=== PATIENT | female | born 1990 | race Caucasian/White ===

== ENCOUNTER 2018-03-15 11:37 | Emergency (ER) | payer OTHER ==
[~2018-03-15] VITALS: Ht 165.1 cm; Wt 49.9 kg
[2018-03-15 11:50] VITALS: BP 138/76
--- NOTE | 2018-03-15 12:05 | NUR ---
PT. ARRIVED TO THE ED DUE TO VAGINAL ITCHY AND DISCHARGE X 1 MONTH. PT. STATES " I HAD UNPROTECTED SEX AND EVER SINCE THEN I HAVE BEEN HAVING WHITISH YELLOW DISCHARGE AND VAGINAL ITCHING AND BURNING ON AND OFF". DENIES ANY N/V/D. AFEBRILE AT THIS TIME. ADMITS TO METH USE. ER MD MADE AWARE. SAFETY PRECAUTIONS IMPLEMENTED. WILL CONTINUE TO MONITOR.
[2018-03-15] MEDS ORDERED: cefTRIAXone 1,000 MG in LIDOCAINE 1% ***ER ONLY *** 2.1 ML IM ONE (13:10)
[2018-03-15] MEDS ORDERED: LEVOFLOXACIN 500 MG TAB PO ONE (13:10)
[2018-03-15] MEDS ORDERED: cefTRIAXone 1,000 MG VIAL ONE (14:02)
[2018-03-15] MEDS ORDERED: LIDOCAINE MPF 1% - 5 mL VIAL 5 ML ONE (14:03)
[2018-03-15 14:54] VITALS: BP 138/76
== END 2018-03-15 14:57 | disposition home or self-care (01) ==
LOC: MED 11:37
DX: N72 Inflammatory disease of cervix uteri (principal); N76.0 Acute vaginitis; A64 Unspecified sexually transmitted disease; F15.90 Other stimulant use, unspecified, uncomplicated; Z72.51 High risk heterosexual behavior
CPT/HCPCS: 81025; 87205; 87210; 96372; 99283; J0696; J2001

== ENCOUNTER 2018-08-17 10:27 | Emergency (ER) | payer OTHER ==
[~2018-08-17] VITALS: Ht 180.3 cm; Wt 63.0 kg
[2018-08-17 10:29] VITALS: BP 133/82
--- NOTE | 2018-08-17 10:56 | NUR ---
PT STATES SHE NEEDS TEST SO SHE COULD GET PENITENTIARY FROM WELFARE OFFICE. PT IS HOMLESS, REPEATIDLY STATES THAT SHE SMELLS BECAUSE SHE CAN'T HOLD HER BLADDER, APPOLIGIZES FREQUENTLY, EXCESSIVE TALKING. HISTORY OF METH USE, PT STATES SHE USED YESTERDAY. LMP END OF MAY, . HX:DRUG ABUSE
[2018-08-17 11:29] LABS: BASOPHILS # (AUTO) 0.1 K/uL (0.00-0.22); BASOPHILS % (AUTO) 0.6 % (0.0-2.0); EOSINOPHILS % (AUTO) 0.5 % (0.0-4.0); HEMATOCRIT 37.7 % (36-48); HEMOGLOBIN 12.7 g/dL (12.0-16.0); LYMPHOCYTES # (AUTO) 2.2 K/uL (2.5-16.5); LYMPHOCYTES % (AUTO) 21.7 % (20.5-51.1); MEAN CORPUSCULAR HEMOGLOBIN 31 pg (27-31); MEAN CORPUSCULAR HGB CONC 34 g/dL (33-37); MEAN CORPUSCULAR VOLUME 91.2 fL (80-94); MONOCYTES # (AUTO) 0.5 K/uL (0.8-1.0); MONOCYTES % (AUTO) 5.1 % (1.7-9.3); NEUTROPHILS # (AUTO) 7.2 K/uL (1.8-7.7); NEUTROPHILS % (AUTO) 72.1 % (42.2-75.2); PLATELET COUNT (AUTO) 271 K/uL (140-450); RED BLOOD CELL COUNT(AUTO) 4.14 MIL/uL (4.20-5.40); RED CELL DISTRIBUTION WIDTH 13.2 % (11.6-13.7)
[2018-08-17 11:39] LABS: MAGNESIUM 1.7 mg/dL (1.8-2.4)
[2018-08-17 11:47] LABS: APPEARANCE,URINE CLEAR (CLEAR); BILIRUBIN,URINE NEGATIVE (NEGATIVE); BLOOD, URINE NEGATIVE (NEGATIVE); COLOR,URINE YELLOW (YELLOW); LEUKOCYTE ESTERASE ,URINE NEGATIVE (NEGATIVE); NITRITE, URINE NEGATIVE (NEGATIVE); UGLUCOSE NEGATIVE (NEGATIVE)
[2018-08-17 12:29] VITALS: BP 120/78
--- NOTE | 2018-08-17 12:29 | NUR ---
Patient discharged with v/s stable. Written and verbal after care instructions given and explained. Patient verbalized understanding. Ambulatory with steady gait. All questions addressed prior to discharge. Advised to follow up with PMD. PT GIVEN TEST RESULTS AND OFFERED MISTI PASS VOUCHER.
[2018-08-17 13:07] LABS: BARBITURATE, URINE NEG. ng/ml (NEG <=200); BENZODIAZEPINE, URINE NEG. ng/mL (NEG <=200); CANNABINOID, URINE NEG. ng/mL (NEG <=50); COCAINE, URINE NEG. ng/mL (NEG <=300); OPIATE, URINE NEG. ng/mL (NEG <=2000); PHENCYCLIDINE SCREEN,URINE NEG. ng/mL (NEG <=25)
== END 2018-08-17 12:29 | disposition home or self-care (01) ==
LOC: MED 10:27
DX: O99.321 Drug use complicating pregnancy, first trimester (principal); F15.10 Other stimulant abuse, uncomplicated; F12.10 Cannabis abuse, uncomplicated; F10.10 Alcohol abuse, uncomplicated; Z59.0 Homelessness; Z3A.11 11 weeks gestation of pregnancy; Y90.0 Blood alcohol level of less than 20 mg/100 ml
CPT/HCPCS: 36415; 76817; 80305; 81003; 81025; 83735; 84702; 85025; 86900; 86901; 99284; G0482

== ENCOUNTER 2018-08-27 16:36 | Emergency (ER) | payer OTHER ==
[~2018-08-27] VITALS: Ht 162.6 cm; Wt 52.2 kg
[2018-08-27 16:37] VITALS: BP 118/78
--- NOTE | 2018-08-27 16:50 | NUR ---
HOMELESS. C/O VAGINAL IRRITATION WITH ITCHING SENSATION AND WANT TO CHECK FOR STD & UTI. SEEN HERE 08/17/18 HERE. DENIES DYSURIA. LMP END OF MAY 2018. DENIES N/V/D; SKIN IS PINK/WARM/DRY; AAOX4 WITH EVEN AND STEADY GAIT; LUNGS CLEAR BL; HR EVEN AND REGULAR; PT DENIES ANY FEVER, CP, SOB, OR COUGH AT THIS TIME; PATIENT IS UNABLE TO DESCRIBE OR RATE HER PAIN; VSS; NO VAGINAL PAIN, DISCHARGE, EDEMA, OR ERYTHEMA NOTICED ON ASSESSMENT. PATIENT POSITIONED FOR COMFORT; HOB ELEVATED; BEDRAILS UP X1; BED DOWN. ER MD MADE AWARE OF PT STATUS.
--- NOTE | 2018-08-27 16:53 | NUR ---
PT AMBULATED TO ER BED 3
[2018-08-27 17:48] LABS: APPEARANCE,URINE HAZY (CLEAR); BILIRUBIN,URINE NEGATIVE (NEGATIVE); BLOOD, URINE NEGATIVE (NEGATIVE); COLOR,URINE YELLOW (YELLOW); LEUKOCYTE ESTERASE ,URINE NEGATIVE (NEGATIVE); NITRITE, URINE NEGATIVE (NEGATIVE); PH,URINE 7.5 (5.0-9.0); UGLUCOSE NEGATIVE (NEGATIVE)
[2018-08-27 18:40] VITALS: BP 109/58
--- NOTE | 2018-08-27 18:40 | NUR ---
Patient discharged with v/s stable. Written and verbal after care instructions given and explained. Patient verbalized understanding. Ambulatory with steady gait. All questions addressed prior to discharge. Advised to follow up with PMD. BUS PASS PROVIDED TO PT.
[2018-08-29 06:21] LABS: CHLAMYDIA TRACHOMATIS AMP DNA Negative (Negative)
== END 2018-08-27 18:40 | disposition home or self-care (01) ==
LOC: MED 16:36
DX: O26.891 Other specified pregnancy related conditions, first trimester (principal); N89.8 Other specified noninflammatory disorders of vagina; Z3A.11 11 weeks gestation of pregnancy; Z59.0 Homelessness
CPT/HCPCS: 36415; 81003; 81025; 87491; 99283

== ENCOUNTER 2018-09-11 23:31 | Emergency (ER) | payer OTHER ==
[~2018-09-11] VITALS: Ht 162.6 cm; Wt 54.4 kg
[2018-09-11 23:33] VITALS: BP 133/81
--- NOTE | 2018-09-11 23:36 | NUR ---
TO LOBBY A/W BED AMBULATORY
--- NOTE | 2018-09-11 23:49 | NUR ---
PT TO ER BED 04 AMBULATORY
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
[2018-09-12] MEDS ORDERED: FLUCONAZOLE 100 MG TAB PO ONE (02:20)
[2018-09-12] MEDS ORDERED: AZITHROMYCIN 250 MG TAB PO ONE (02:20)
[2018-09-12] MEDS ORDERED: FLUCONAZOLE 100 MG TAB ONE (02:42)
--- NOTE | 2018-09-12 02:45 | NUR ---
Patient discharged with v/s stable. Patient acting appropriatly, states she is ready to go; denies pain at this time. Written and verbal after care instructions given and explained. Patient alert, oriented and verbalized understanding of instructions. Ambulatory with steady gait. All questions addressed prior to discharge. ID band removed. Patient advised to follow up with PMD. Rx of Zithromax given. Patient educated on indication of medication including possible reaction and side effects. Opportunity to ask questions provided and answered.
[2018-09-12 02:58] VITALS: BP 128/73
== END 2018-09-12 02:45 | disposition home or self-care (01) ==
LOC: MED 23:31
DX: O98.812 Other maternal infectious and parasitic diseases complicating pregnancy, second trimester (principal); B37.9 Candidiasis, unspecified; A74.9 Chlamydial infection, unspecified; Z59.0 Homelessness; Z3A.16 16 weeks gestation of pregnancy
CPT/HCPCS: 81025; 99283

== ENCOUNTER 2018-11-05 21:19 | Emergency (ER) | payer OTHER ==
[~2018-11-05] VITALS: Ht 160 cm; Wt 56.2 kg
[2018-11-05 21:32] VITALS: BP 114/71
--- NOTE | 2018-11-05 22:54 | NUR ---
PT AMBULATED TO BED 08 WITH STEADY GAIT.
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
--- NOTE | 2018-11-06 00:10 | NUR ---
SEEN AND EXAMINED BY ERMD AT BEDSIDE
[2018-11-06 00:45] VITALS: BP 110/76
--- NOTE | 2018-11-06 00:45 | NUR ---
Patient discharged with v/s stable. Written and verbal after care instructions given and explained. Patient verbalized understanding. Pt. stated staying at a friends house tonight. Provided with food. Ambulatory with steady gait. All questions addressed prior to discharge. Advised to follow up with PMD.
== END 2018-11-06 00:45 | disposition home or self-care (01) ==
LOC: MED 21:19
DX: O26.892 Other specified pregnancy related conditions, second trimester (principal); Z3A.23 23 weeks gestation of pregnancy
CPT/HCPCS: 81002; 81025; 99283

== ENCOUNTER 2019-01-12 15:10 | Observation (INO) | payer OTHER ==
[~2019-01-12] VITALS: Ht 162.6 cm; Wt 62.6 kg
[2019-01-12] MEDS ORDERED: LACTATED RINGERS 1,000 ML IV SCH (15:30)
[2019-01-12] MEDS ORDERED: BETAMETH ACET/BETAMETH NA PH 30 MG/5 ML VIAL IM ONE ×2 (15:40→16:39)
[2019-01-12 15:56] LABS: BASOPHILS # (AUTO) 0.1 K/uL (0.00-0.22); BASOPHILS % (AUTO) 0.5 % (0.0-2.0); EOSINOPHILS # (AUTO) 0.1 K/uL (0-0.4); EOSINOPHILS % (AUTO) 0.6 % (0.0-4.0); HEMOGLOBIN 11.6 g/dL (12.0-16.0); LYMPHOCYTES # (AUTO) 2.2 K/uL (2.5-16.5); LYMPHOCYTES % (AUTO) 19.8 % (20.5-51.1); MEAN CORPUSCULAR HEMOGLOBIN 30 pg (27-31); MEAN CORPUSCULAR HGB CONC 32 g/dL (33-37); MEAN CORPUSCULAR VOLUME 91.7 fL (80-94); MONOCYTES # (AUTO) 0.8 K/uL (0.8-1.0); MONOCYTES % (AUTO) 6.9 % (1.7-9.3); NEUTROPHILS % (AUTO) 72.2 % (42.2-75.2); PLATELET COUNT (AUTO) 282 K/uL (140-450); RED BLOOD CELL COUNT(AUTO) 3.92 MIL/uL (4.20-5.40); RED CELL DISTRIBUTION WIDTH 13.3 % (11.6-13.7); WHITE BLOOD COUNT (AUTO) 11.1 K/uL (4.8-10.8)
[2019-01-12 16:23] LABS: APPEARANCE,URINE CLEAR (CLEAR); BILIRUBIN,URINE NEGATIVE (NEGATIVE); BLOOD, URINE NEGATIVE (NEGATIVE); COLOR,URINE YELLOW (YELLOW); LEUKOCYTE ESTERASE ,URINE NEGATIVE (NEGATIVE); NITRITE, URINE NEGATIVE (NEGATIVE); UGLUCOSE NEGATIVE (NEGATIVE)
[2019-01-12 16:33] LABS: BARBITURATE, URINE NEG. ng/ml (NEG <=200); BENZODIAZEPINE, URINE NEG. ng/mL (NEG <=200); CANNABINOID, URINE NEG. ng/mL (NEG <=50); COCAINE, URINE NEG. ng/mL (NEG <=300); OPIATE, URINE NEG. ng/mL (NEG <=2000); PHENCYCLIDINE SCREEN,URINE NEG. ng/mL (NEG <=25)
[2019-01-12] MEDS ORDERED: ZOLPIDEM 5 MG TAB PO SCH (23:00)
--- NOTE | 2019-01-13 08:15 | NUR ---
PATIENT HAS BEEN SCREENED AND CATEGORIZED LOW NUTRITION RISK. PATIENT WILL BE SEEN WITHIN 7 DAYS OF ADMISSION. 01/19/[address]
[2019-01-13] MEDS ORDERED: BETAMETH ACET/BETAMETH NA PH 30 MG/5 ML VIAL IM ONE (11:36)
[2019-01-14] MEDS ORDERED: PREN-380 PO (16:43)
== END 2019-01-13 12:22 | disposition home or self-care (01) ==
LOC: MLD 15:10
PROVIDERS: ADMIT Obstetrics & Gynecology; ATTEND Obstetrics & Gynecology
DX: O99.323 Drug use complicating pregnancy, third trimester (principal); O40.3XX0 Polyhydramnios, third trimester, not applicable or unspecified; F15.10 Other stimulant abuse, uncomplicated; Z3A.32 32 weeks gestation of pregnancy
CPT/HCPCS: 36415; 59025; 76805; 76819; 80305; 81003; 85025; 86886; 86900; 86901; 96372; G0378; J0702; J7120; Q0092

== ENCOUNTER 2019-01-13 20:44 | Observation (INO) | payer OTHER ==
[~2019-01-13] VITALS: Ht 162.6 cm; Wt 62.6 kg
--- NOTE | 2019-01-13 20:46 | NUR ---
2046-- PT WENT TO L&D BED 5 VIA W/C
[2019-01-13 22:30] VITALS: BP 112/66
[2019-01-13] MEDS ORDERED: INFLUENZA VACCINE QUAD 0.5 ML SYR IMVAC PRN ×2 (22:30)
[2019-01-13] MEDS ORDERED: diphenhydrAMINE 50 MG CAP PO ONE (23:05)
[2019-01-14] MEDS ORDERED: PREN-380 PO (16:43)
== END 2019-01-14 01:00 | disposition home or self-care (01) ==
LOC: MED 20:44 → MLD 21:20
PROVIDERS: ADMIT Obstetrics & Gynecology; ATTEND Obstetrics & Gynecology
DX: O99.343 Other mental disorders complicating pregnancy, third trimester (principal); F41.9 Anxiety disorder, unspecified; Z3A.32 32 weeks gestation of pregnancy
CPT/HCPCS: 81000; 90686; 99285; G0378; Q0163

== ENCOUNTER 2019-01-14 16:09 | Observation (INO) | payer OTHER ==
[~2019-01-14] VITALS: Ht 162.6 cm; Wt 62.6 kg
[2019-01-14 16:20] VITALS: BP 109/60
[2019-01-14] MEDS ORDERED: hydrOXYzine 50 MG/ML VIAL IM ONE (16:40)
[2019-01-14] MEDS ORDERED: PREN-380 PO (16:43)
[2019-01-14] MEDS ORDERED: hydrOXYzine PAMOATE 25 MG CAP PO SCH ×2 (17:00→17:30)
[2019-01-14 17:16] LABS: APPEARANCE,URINE CLEAR (CLEAR); BILIRUBIN,URINE NEGATIVE (NEGATIVE); BLOOD, URINE NEGATIVE (NEGATIVE); COLOR,URINE YELLOW (YELLOW); LEUKOCYTE ESTERASE ,URINE TRACE (NEGATIVE); NITRITE, URINE NEGATIVE (NEGATIVE); UGLUCOSE NEGATIVE (NEGATIVE)
[2019-01-14 17:20] LABS: BARBITURATE, URINE NEGATIVE ng/ml (NEG <=200); BENZODIAZEPINE, URINE NEGATIVE ng/mL (NEG <=200); CANNABINOID, URINE NEGATIVE ng/mL (NEG <=50); COCAINE, URINE NEGATIVE ng/mL (NEG <=300); OPIATE, URINE NEGATIVE ng/mL (NEG <=2000); PHENCYCLIDINE SCREEN,URINE NEGATIVE ng/mL (NEG <=25)
[2019-01-14 17:45] LABS: RBC,URINE 0 /HPF (0-5); WBC,URINE 0-5 /HPF (0-5)
--- NOTE | 2019-01-15 08:57 | NUR ---
PATIENT HAS BEEN SCREENED AND CATEGORIZED LOW NUTRITION RISK. PATIENT WILL BE SEEN WITHIN 7 DAYS OF ADMISSION. 01/22/[address]
== END 2019-01-14 18:58 | disposition home or self-care (01) ==
LOC: MLD 16:09
PROVIDERS: ADMIT Obstetrics & Gynecology; ATTEND Obstetrics & Gynecology
DX: O99.343 Other mental disorders complicating pregnancy, third trimester (principal); F41.9 Anxiety disorder, unspecified; Z3A.32 32 weeks gestation of pregnancy
CPT/HCPCS: 80305; 81001; G0378; Q0177

== ENCOUNTER 2019-01-26 23:07 | Emergency (ER) | payer OTHER ==
[~2019-01-26] VITALS: Ht 162.6 cm; Wt 64.0 kg
[~2019-01-26 23:07] MED LIST: PREN-380 PO
[2019-01-26 23:15] VITALS: BP 109/63
--- NOTE | 2019-01-26 23:17 | NUR ---
28 Y/O FEMALE C/O LEG SPASM FOR ONE MONTH. NO PMH, 34 WEEKS ; LAST LMP MAY 29. PAIN IS A 4/10 CRAMP LIKE PAIN LEGS BILATERALLY. PEDAL PULSES +2. NO EDEMA IN THE ANKLES. A/OX4 FOLLOWS COMMANDS; BREATHING UNLABORED AND SYMMETRICAL. ERMD MADE AWARE OF STATUS. SIDE RAILSX1. WILL CONTINUE TO MONITOR. PMH:DENIES RX:DENIES NKDA
--- NOTE | 2019-01-26 23:17 | NUR ---
to lobby a/w bed ambulatory
--- NOTE | 2019-01-26 23:53 | NUR ---
Dr. Hess examining patient.
[2019-01-27] MEDS ORDERED: MAGNESIUM OXIDE 400 MG TAB PO ONE (00:20)
[2019-01-27] MEDS ORDERED: FERROUS GLUCONATE 324 MG TAB PO ONE (00:20)
[2019-01-27] MEDS ORDERED: MAGNESIUM OXIDE 400 MG TAB ONE (00:43)
[2019-01-27 00:57] VITALS: BP 109/63
--- NOTE | 2019-01-27 00:57 | NUR ---
Patient discharged with v/s stable. Written and verbal after care instructions given and explained. Patient alert, oriented and verbalized understanding of instructions. Ambulatory with steady gait. All questions addressed prior to discharge. ID band removed. Patient advised to follow up with PMD. Rx of MR 90 FE WAS given. Patient educated on indication of medication including possible reaction and side effects. Opportunity to ask questions provided and answered. PT STATED SHE HAD NO PAIN 0/10 PRIOR TO D/C. PT WILL FOLLOW UP WITH OBGYN
[2019-01-28] MEDS ORDERED: CALCIUM (05:35)
[2019-01-28] MEDS ORDERED: DOCO100C PO (05:35)
== END 2019-01-27 00:57 | disposition home or self-care (01) ==
LOC: MED 23:07
DX: O26.893 Other specified pregnancy related conditions, third trimester (principal); R25.2 Cramp and spasm; Z3A.34 34 weeks gestation of pregnancy; Z79.899 Other long term (current) drug therapy
CPT/HCPCS: 99282

== ENCOUNTER 2019-01-28 03:55 | Observation (INO) | payer OTHER ==
[~2019-01-28] VITALS: Ht 162.6 cm; Wt 64.0 kg
[2019-01-28 05:29] VITALS: BP 116/86
[2019-01-28] MEDS ORDERED: CALCIUM (05:35)
[2019-01-28] MEDS ORDERED: DOCO100C PO (05:35)
== END 2019-01-28 09:35 | disposition home or self-care (01) ==
LOC: MFCC 03:55
PROVIDERS: ADMIT Obstetrics & Gynecology; ATTEND Obstetrics & Gynecology
DX: O42.913 Preterm premature rupture of membranes, unspecified as to length of time between rupture and onset of labor, third trimester (principal); Z3A.35 35 weeks gestation of pregnancy
CPT/HCPCS: 81000; G0378

== ENCOUNTER 2019-02-14 11:44 | Emergency (ER) | payer OTHER ==
[~2019-02-14] VITALS: Ht 162.6 cm; Wt 68.5 kg
[~2019-02-14 11:44] MED LIST changes: +CALCIUM; +DOCO100C PO
[2019-02-14 11:48] VITALS: BP 129/73
--- NOTE | 2019-02-14 11:53 | NUR ---
Pt taken to bed 3.
--- NOTE | 2019-02-14 12:04 | NUR ---
28/F c/o right hand tingling and tightness x3 days. Pt reports being 37 weeks , sent by Dr. Apodaca for evaluation. Pt denies any trauma. Denies injury. Full ROM. CMS intact. Denies any vaginal bleeding or abd pain.
--- NOTE | 2019-02-14 12:20 | NUR ---
APPLIED WRIST SPLINT TO RIGHT WRIST WITHOUT ANY ISSUES.
[2019-02-14 12:25] VITALS: BP 121/70
--- NOTE | 2019-02-14 12:25 | NUR ---
Patient discharged with v/s stable. Written and verbal after care instructions given and explained. Patient verbalized understanding. Ambulatory with steady gait. All questions addressed prior to discharge. Advised to follow up with PMD.
== END 2019-02-14 12:25 | disposition home or self-care (01) ==
LOC: MED 11:44
DX: O99.713 Diseases of the skin and subcutaneous tissue complicating pregnancy, third trimester (principal); R20.2 Paresthesia of skin; Z3A.37 37 weeks gestation of pregnancy; Z79.899 Other long term (current) drug therapy
CPT/HCPCS: 99283

== ENCOUNTER 2019-02-20 22:43 | Emergency (ER) | payer OTHER ==
[~2019-02-20] VITALS: Ht 162.6 cm; Wt 68.3 kg
[2019-02-20 22:52] VITALS: BP 128/76
--- NOTE | 2019-02-20 23:00 | NUR ---
AFTER BEING TRIAGED PATIENT STATES SHE DOES NOT WANT TO BE SEEN BY DR. SCANLON.
== END 2019-02-20 23:00 | disposition left against medical advice (07) ==
LOC: MED 22:43
DX: O99.713 Diseases of the skin and subcutaneous tissue complicating pregnancy, third trimester (principal); R20.0 Anesthesia of skin; Z53.21 Procedure and treatment not carried out due to patient leaving prior to being seen by health care provider; Z3A.37 37 weeks gestation of pregnancy

== ENCOUNTER 2019-03-04 10:51 | Inpatient (IN) | payer OTHER ==
[~2019-03-04] VITALS: Ht 162.6 cm; Wt 68.9 kg
[2019-03-04] MEDS ORDERED: PROMETHAZINE 25 MG/ML VIAL IVP PRN (11:20)
[2019-03-04] MEDS ORDERED: NALBUPHINE 10 MG/ML AMP IVP PRN (11:20)
[2019-03-04] MEDS ORDERED: METHYLERGONOVINE 0.2 MG/ML AMP IM PRN (11:20)
[2019-03-04] MEDS ORDERED: OXYTOCIN 20 UNITS in LACTATED RINGERS 1,000 ML IV SCH (11:20)
[2019-03-04] MEDS ORDERED: CARBOPROST 250 MCG/ML AMP IM PRN (11:20)
[2019-03-04 12:15] LABS: BASOPHILS % (AUTO) 0.5 % (0.0-2.0); EOSINOPHILS # (AUTO) 0.1 K/uL (0-0.4); EOSINOPHILS % (AUTO) 0.9 % (0.0-4.0); HEMATOCRIT 35.8 % (36-48); HEMOGLOBIN 11.8 g/dL (12.0-16.0); LYMPHOCYTES # (AUTO) 2.2 K/uL (2.5-16.5); LYMPHOCYTES % (AUTO) 24.7 % (20.5-51.1); MEAN CORPUSCULAR HEMOGLOBIN 30 pg (27-31); MEAN CORPUSCULAR HGB CONC 33 g/dL (33-37); MEAN CORPUSCULAR VOLUME 90.9 fL (80-94); MONOCYTES # (AUTO) 0.6 K/uL (0.8-1.0); MONOCYTES % (AUTO) 7.1 % (1.7-9.3); NEUTROPHILS % (AUTO) 66.8 % (42.2-75.2); PLATELET COUNT (AUTO) 222 K/uL (140-450); RED BLOOD CELL COUNT(AUTO) 3.94 MIL/uL (4.20-5.40); WHITE BLOOD COUNT (AUTO) 8.9 K/uL (4.8-10.8)
[2019-03-04 12:20] LABS: APPEARANCE,URINE SL CLOUDY (CLEAR); BILIRUBIN,URINE NEGATIVE (NEGATIVE); BLOOD, URINE NEGATIVE (NEGATIVE); COLOR,URINE YELLOW (YELLOW); LEUKOCYTE ESTERASE ,URINE 1+ (NEGATIVE); NITRITE, URINE NEGATIVE (NEGATIVE); PH,URINE 6.5 (5.0-9.0); UGLUCOSE NEGATIVE (NEGATIVE)
[2019-03-04 12:25] VITALS: BP 110/67
[2019-03-04 12:27] LABS: BARBITURATE, URINE NEG. ng/ml (NEG <=200); BENZODIAZEPINE, URINE NEG. ng/mL (NEG <=200); CANNABINOID, URINE NEG. ng/mL (NEG <=50); COCAINE, URINE NEG. ng/mL (NEG <=300); OPIATE, URINE NEG. ng/mL (NEG <=2000); PHENCYCLIDINE SCREEN,URINE NEG. ng/mL (NEG <=25)
[2019-03-04 12:30] LABS: RBC,URINE 0-5 /HPF (0-5)
[2019-03-04 12:42] LABS: ANION GAP 12.1 (8-16); CARBON DIOXIDE 24.8 mmol/L (21-32); CREATININE 0.7 mg/dL (0.6-1.3); POTASSIUM 3.9 mmol/L (3.5-5.1)
[2019-03-04 12:48] LABS: ALBUMIN 2.4 g/dL (3.4-5.0); TOTAL BILIRUBIN 0.8 mg/dL (0.0-1.0)
[2019-03-04] MEDS ORDERED: MISOPROSTOL 25 MCG TAB ONE ×2 (13:56→18:12)
[2019-03-04] MEDS: LACTATED RINGERS 1,000 ML IV SCH ×2 (14:00→19:56)
[2019-03-04] MEDS ORDERED: ACETAMINOPHEN EXTRA STRENGTH 500 MG TAB PO PRN (15:50)
[2019-03-04] MEDS ORDERED: ACETAMINOPHEN EXTRA STRENGTH 500 MG TAB ONE (15:54)
[2019-03-04] MEDS ORDERED: HYDR25CA1 PO (16:55)
[2019-03-04] MEDS ORDERED: MISOPROSTOL 200 MCG TAB VG SCH (18:00)
[2019-03-04] MEDS ORDERED: EPIDURAL KEYS MC ONE (20:17)
[2019-03-04] MEDS ORDERED: OXYTOCIN 20 UNITS/LR PREMIX 1,000 ML IV ONE (21:56)
[2019-03-04] MEDS ORDERED: ceFAZolin 1,000 MG VIAL ONE (22:56)
[2019-03-04] MEDS ORDERED: ePHEDrine 50 MG/ML VIAL ONE (23:22)
[2019-03-04] MEDS ORDERED: MORPHINE PRES FREE 10 MG/10 ML AMP IV ONE (23:33)
[2019-03-04] MEDS ORDERED: SODIUM BICARBONATE 8.4% PFS 50 MEQ/50 ML SYR IVP ONE (23:34)
[2019-03-04] MEDS ORDERED: LIDOCAINE/EPI 2% 1:100000 20 ML VIAL INJ ONE (23:42)
[2019-03-04] MEDS ORDERED: LIDOCAINE/EPI MPF 2%1:200000 10 ML VIAL INJ ONE (23:51)
[2019-03-05] MEDS ORDERED: OXYTOCIN 20 UNITS/LR PREMIX 1,000 ML IV ONE (00:19)
[2019-03-05] MEDS ORDERED: ONDANSETRON 4 MG/2 ML VIAL ONE (00:19)
[2019-03-05] MEDS ORDERED: ONDANSETRON 4 MG/2 ML VIAL IVP PRN ×3 (00:40→00:45)
[2019-03-05] MEDS ORDERED: diphenhydrAMINE 50 MG/ML VIAL IVP PRN (00:40)
[2019-03-05] MEDS ORDERED: NALBUPHINE 10 MG/ML AMP IVP PRN (00:40)
[2019-03-05] MEDS ORDERED: NALOXONE 0.4 MG/ML VIAL IVP PRN ×4 (00:40→00:45)
[2019-03-05] MEDS ORDERED: KETOROLAC 30 MG/ML VIAL IVP PRN (00:40)
[2019-03-05] MEDS ORDERED: HYDROmorphone 1 MG/ML AMP IVP PRN (00:45)
[2019-03-05] MEDS ORDERED: MEASLES, MUMPS, AND RUBELLA 1 VIAL SQVAC PRN (00:55)
[2019-03-05] MEDS ORDERED: METHYLERGONOVINE 0.2 MG/ML AMP IM PRN (00:55)
[2019-03-05] MEDS: OXYTOCIN 10 UNITS in LACTATED RINGERS 1,000 ML IV SCH ×2 (05:59→14:42)
[2019-03-05] MEDS ORDERED: LIDOCAINE/EPI MPF 2%1:200000 10 ML VIAL INJ ONE (07:05)
--- NOTE | 2019-03-05 08:19 | NUR ---
PATIENT HAS BEEN SCREENED AND CATEGORIZED LOW NUTRITION RISK. PATIENT WILL BE SEEN WITHIN 7 DAYS OF ADMISSION. 03/10/[address]
[2019-03-05 12:11] LABS: BASOPHILS % (AUTO) 0.1 % (0.0-2.0); HEMATOCRIT 30.4 % (36-48); LYMPHOCYTES # (AUTO) 0.7 K/uL (2.5-16.5); LYMPHOCYTES % (AUTO) 4.1 % (20.5-51.1); MEAN CORPUSCULAR HEMOGLOBIN 30 pg (27-31); MEAN CORPUSCULAR HGB CONC 33 g/dL (33-37); MEAN CORPUSCULAR VOLUME 90.8 fL (80-94); MONOCYTES # (AUTO) 0.7 K/uL (0.8-1.0); MONOCYTES % (AUTO) 3.7 % (1.7-9.3); NEUTROPHILS # (AUTO) 16.8 K/uL (1.8-7.7); NEUTROPHILS % (AUTO) 92.1 % (42.2-75.2); PLATELET COUNT (AUTO) 193 K/uL (140-450); RED BLOOD CELL COUNT(AUTO) 3.35 MIL/uL (4.20-5.40); RED CELL DISTRIBUTION WIDTH 14.6 % (11.6-13.7); WHITE BLOOD COUNT (AUTO) 18.2 K/uL (4.8-10.8)
[2019-03-05] MEDS: KETOROLAC 30 MG/ML VIAL IM/IVP SCH ×2 (13:01→18:55)
[2019-03-05] MEDS ORDERED: IBUPROFEN 600 MG TAB PO SCH (18:00)
[2019-03-05] MEDS ORDERED: CARBOPROST 250 MCG/ML AMP IM PRN (18:45)
[2019-03-05] MEDS ORDERED: PROMETHAZINE 25 MG/ML VIAL IVP PRN (18:45)
[2019-03-06] MEDS: KETOROLAC 30 MG/ML VIAL IM/IVP SCH (00:55)
[2019-03-06] MEDS: BISACODYL 10 MG SUPP RC SCH (09:00)
[2019-03-06] MEDS: IBUPROFEN 600 MG TAB PO SCH ×3 (12:10→23:46)
[2019-03-06] MEDS ORDERED: DOCUSATE 100 MG/10 ML UDC PO SCH (20:00)
[2019-03-06] MEDS ORDERED: DOCUSATE 100 MG/10 ML UDC PO PRN (20:10)
[2019-03-06] MEDS: diphenhydrAMINE 50 MG CAP PO PRN (21:20)
[2019-03-06] MEDS: DOCUSATE SODIUM 100 MG GELCAP PO PRN (21:20)
[2019-03-06] MEDS: oxyCODONE/APAP 5/325 MG 1 TAB TAB PO PRN (21:40)
[2019-03-07] MEDS: IBUPROFEN 600 MG TAB PO SCH ×3 (05:57→18:05)
[2019-03-07] MEDS: DOCUSATE SODIUM 100 MG GELCAP PO PRN ×3 (07:46→21:10)
[2019-03-07] MEDS: oxyCODONE/APAP 5/325 MG 1 TAB TAB PO PRN ×2 (07:46→19:55)
[2019-03-07] MEDS: BISACODYL 10 MG SUPP RC SCH ×2 (09:00→21:08)
[2019-03-07] MEDS: diphenhydrAMINE 50 MG CAP PO PRN ×2 (09:09→16:44)
[2019-03-07] MEDS ORDERED: CYCLOBENZAPRINE 10 MG TAB PO SCH (13:00)
[2019-03-07] MEDS: CYCLOBENZAPRINE 10 MG TAB PO SCH ×2 (13:35→21:10)
[2019-03-08] MEDS: IBUPROFEN 600 MG TAB PO SCH ×3 (00:16→13:17)
[2019-03-08] MEDS: CYCLOBENZAPRINE 10 MG TAB PO SCH ×2 (05:32→13:19)
[2019-03-08] MEDS: oxyCODONE/APAP 5/325 MG 1 TAB TAB PO PRN (11:22)
[2019-03-08] MEDS ORDERED: CAMERA MC ONE (12:09)
[2019-03-08] MEDS ORDERED: AZITHROMYCIN 250 MG TAB PO SCH (13:00)
[2019-03-08] MEDS: DOCUSATE SODIUM 100 MG GELCAP PO PRN (13:18)
== END 2019-03-08 16:55 | disposition home or self-care (01) | DRG 540 ==
LOC: MLD 10:51 → MFCC 03-05 03:15
PROVIDERS: ADMIT Obstetrics & Gynecology; ATTEND Obstetrics & Gynecology
PROC: 10D00Z1 Extraction of Products of Conception, Low, Open Approach (ICD-10-PCS; principal; 2019-03-05)
PROC: 3E0234Z Introduction of Serum, Toxoid and Vaccine into Muscle, Percutaneous Approach (ICD-10-PCS; 2019-03-05)
DX: O69.1XX0 Labor and delivery complicated by cord around neck, with compression, not applicable or unspecified (principal); D62 Acute posthemorrhagic anemia; O62.1 Secondary uterine inertia; O76 Abnormality in fetal heart rate and rhythm complicating labor and delivery; Z3A.39 39 weeks gestation of pregnancy; Z37.0 Single live birth; Z23 Encounter for immunization
CPT/HCPCS: 36415; 51702; 80053; 80305; 81001; 85025; 86592; 86886; 86900; 86901; 87086; 90715; J0690; J1885; J2001; J2270; J2405; J2590; J7120; Q0163; Q9967

== ENCOUNTER 2019-03-17 18:59 | Emergency (ER) | payer OTHER ==
[~2019-03-17] VITALS: Ht 162.6 cm; Wt 56.7 kg
[~2019-03-17 18:59] MED LIST changes: +HYDR25CA1 PO
[2019-03-17 19:10] VITALS: BP 100/65
--- NOTE | 2019-03-17 19:13 | NUR ---
TO LOBBY A/W BED AMBULATORY
--- NOTE | 2019-03-17 20:56 | NUR ---
PT AMBULATED TO ER BED 10
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
--- NOTE | 2019-03-17 21:28 | NUR ---
DR. JORJE ROJAS AT BEDSIDE.
[2019-03-17] MEDS ORDERED: CEPHALEXIN 500 MG CAP PO ONE (21:30)
--- NOTE | 2019-03-17 21:40 | NUR ---
ROBERTO X [address] RECINOS. SITE CLEANED WITH BETADINE AND COVERED WITH STERISTRIPS.
[2019-03-17 21:52] VITALS: BP 116/75
== END 2019-03-17 21:52 | disposition home or self-care (01) ==
LOC: MED 18:59
DX: L76.34 Postprocedural seroma of skin and subcutaneous tissue following other procedure (principal); Z98.890 Other specified postprocedural states; Z79.899 Other long term (current) drug therapy; Y83.8 Other surgical procedures as the cause of abnormal reaction of the patient, or of later complication, without mention of misadventure at the time of the procedure
CPT/HCPCS: 12001; 99283

== ENCOUNTER 2019-03-20 15:26 | Emergency (ER) | payer OTHER ==
[~2019-03-20] VITALS: Ht 162.6 cm; Wt 57.8 kg
[2019-03-20 15:41] VITALS: BP 123/64
--- NOTE | 2019-03-20 15:50 | NUR ---
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
[2019-03-20 15:56] VITALS: BP 123/64
== END 2019-03-20 15:56 | disposition home or self-care (01) ==
LOC: MED 15:26
DX: Z48.89 Encounter for other specified surgical aftercare (principal); Z79.899 Other long term (current) drug therapy; Z98.890 Other specified postprocedural states
CPT/HCPCS: 99281

== ENCOUNTER 2019-04-09 14:19 | Emergency (ER) | payer OTHER ==
[~2019-04-09] VITALS: Ht 162.6 cm; Wt 56.2 kg
[2019-04-09 14:39] VITALS: BP 102/63
--- NOTE | 2019-04-09 15:02 | NUR ---
PT AMBULATED TO ER BED 10
--- NOTE | 2019-04-09 15:12 | NUR ---
28 Y/O F C/O INCISION DONE 03-05-2019 INFECTED. INCISION IS CLEAN, DRY, WITH NO REDNESS OR SWELLING. THERE IS A SMALL OPENING THAT PT STATES SHE TRIED CLEANING THE INCISION AND GREEN DISCHARGE CAME OUT. PT STATES SHE HAS HAD VAGINAL DISCHARGE X 2 DAYS. PT DENIES FEVER, N/V. PT WAS ON ANBITIOTICS X 1 WEEK AGO. PT POSITIONED FOR COMFORT. NKA
--- NOTE | 2019-04-09 17:30 | NUR ---
MD AT BEDSIDE EXAMINING PATIENT.
--- NOTE | 2019-04-09 17:45 | NUR ---
Patient discharged with v/s stable. Written and verbal after care instructions given and explained. Patient alert, oriented and verbalized understanding of instructions. Ambulatory with steady gait. All questions addressed prior to discharge. ID band removed. Patient advised to follow up with PMD. Rx of MOTRIN, BACTRIM given. Patient educated on indication of medication including possible reaction and side effects. Opportunity to ask questions provided and answered.
== END 2019-04-09 17:45 | disposition home or self-care (01) ==
LOC: MED 14:19
DX: T81.49XA Infection following a procedure, other surgical site, initial encounter (principal); N39.0 Urinary tract infection, site not specified; Z98.890 Other specified postprocedural states; Z79.899 Other long term (current) drug therapy; Y83.8 Other surgical procedures as the cause of abnormal reaction of the patient, or of later complication, without mention of misadventure at the time of the procedure; Y92.89 Other specified places as the place of occurrence of the external cause
CPT/HCPCS: 81002; 99283

== ENCOUNTER 2019-04-15 18:44 | Emergency (ER) | payer OTHER ==
[~2019-04-15] VITALS: Ht 119.4 cm; Wt 24.2 kg
[2019-04-15 18:53] VITALS: BP 109/62
--- NOTE | 2019-04-15 19:00 | NUR ---
FLU SWAB COLLECTED
--- NOTE | 2019-04-15 19:20 | NUR ---
Nithya altman in [facility] - 04/15/19 at 1921 by [email or web address] PT AMBULATED TO BED #11
--- NOTE | 2019-04-15 19:21 | NUR ---
PT AMBULATED TO BED #05
--- NOTE | 2019-04-15 19:30 | NUR ---
28 Y/O FEMALE C/O PELVIC PAIN W/ GREEN DISCHARGE X 1 WK. PT STATES SHE HAD A ON FEB 15. PT GIVEN BACTRIM FOR UTI/ABD SWELLING STATES NO RELIEF, SORE THROAT X 1 DAY. DENIES N/V/D. ABD SOFT, ROUND, NON TENDER TO PALP. DENIES FEVER/CHILLS. RR EVEN AND UNLABORED. PT SITTING UPRIGHT IN BED ON CELLPHONE. LMP MAY 2018. VSS MEDHX: DENIES ALLERGIES: NKA
--- NOTE | 2019-04-15 19:36 | NUR ---
DR LEI AT BEDSIDE EXAMINING PT.
[2019-04-15 20:30] LABS: APPEARANCE,URINE CLEAR (CLEAR); BILIRUBIN,URINE NEGATIVE (NEGATIVE); BLOOD, URINE NEGATIVE (NEGATIVE); COLOR,URINE YELLOW (YELLOW); LEUKOCYTE ESTERASE ,URINE TRACE (NEGATIVE); NITRITE, URINE NEGATIVE (NEGATIVE); UGLUCOSE NEGATIVE (NEGATIVE)
[2019-04-15 20:33] LABS: RBC,URINE 0 /HPF (0-5); WBC,URINE 0-5 /HPF (0-5)
[2019-04-15 20:46] LABS: BARBITURATE, URINE NEG. ng/ml (NEG <=200); BENZODIAZEPINE, URINE NEG. ng/mL (NEG <=200); CANNABINOID, URINE NEG. ng/mL (NEG <=50); COCAINE, URINE NEG. ng/mL (NEG <=300); OPIATE, URINE NEG. ng/mL (NEG <=2000); PHENCYCLIDINE SCREEN,URINE NEG. ng/mL (NEG <=25)
[2019-04-15 21:14] VITALS: BP 109/62
--- NOTE | 2019-04-15 21:16 | NUR ---
Patient discharged with v/s stable. Written and verbal after care instructions given and explained. Patient alert, oriented and verbalized understanding of instructions. Ambulatory with steady gait. All questions addressed prior to discharge. ID band removed. Patient advised to follow up with PMD. Rx FOR KEFLEX, NAPROSYN given. Patient educated on indication of medication including possible reaction and side effects. Opportunity to ask questions provided and answered.
== END 2019-04-15 21:16 | disposition home or self-care (01) ==
LOC: MED 18:44
DX: R82.71 Bacteriuria (principal); Z79.899 Other long term (current) drug therapy; Z98.890 Other specified postprocedural states
CPT/HCPCS: 80305; 81001; 81025; 87804; 99283

== ENCOUNTER 2019-05-09 15:13 | Emergency (ER) | payer OTHER ==
[~2019-05-09] VITALS: Ht 162.6 cm; Wt 56.2 kg
[2019-05-09 15:21] VITALS: BP 100/51
--- NOTE | 2019-05-09 15:27 | NUR ---
WAIT AT LOBBY.
--- NOTE | 2019-05-09 16:01 | NUR ---
28 Y/O FEMALE PRESENTS WITH COUGH/COLD/CONGESTION X 2 DAYS. PT IS EXPELLING THICK YELLOW MUCUS. RESP EVEN AND UNLABORED. DENIES SOB/CHEST PAIN. PT ALSO COMPLAINING OF VAGINAL DISCHARGE THAT IS THICK AND WHITE, PT REPORTS SHE HAD A IN FEBRUARY AND HAS HAD VAGINAL DISCHARGE SINCE THEN. HAS BEEN ON TWO ANTIBX, BUT DISCHARGE KEEPS COMING BACK. DENIES BURNING/FREQUENCY WITH URINATION. DENIES ANY LOWER BACK PAIN. NO N/V/D. NO PMH NKA
[2019-05-09] MEDS: DEXAMETHASONE 4 MG/ML VIAL PO ONE (16:58)
[2019-05-09 17:00] VITALS: BP 110/69
--- NOTE | 2019-05-09 17:02 | NUR ---
[place] SAMPLE COLLECTED FROM PT
--- NOTE | 2019-05-09 18:10 | NUR ---
PT CAME TO NURSE STATION TO ANNOUNCE SHE IS LEAVING THE ER AMA. ERMD NOTIFIED. AMA FORM SIGNED, PT UNDERSTANDS CONSEQUENCES OF LEAVING ER AMA.
== END 2019-05-09 18:10 | disposition left against medical advice (07) ==
LOC: MED 15:13
DX: J02.9 Acute pharyngitis, unspecified (principal); N89.8 Other specified noninflammatory disorders of vagina; Z79.899 Other long term (current) drug therapy
CPT/HCPCS: 81002; 81025; 87210; 99283; J1100

== ENCOUNTER 2019-11-17 02:02 | Emergency (ER) | payer OTHER ==
[~2019-11-17] VITALS: Ht 162.6 cm; Wt 49.9 kg
--- NOTE | 2019-11-17 02:12 | NUR ---
PT TAKEN TO OVERFLOW TENT
--- NOTE | 2019-11-17 02:16 | NUR ---
Dr. Malik examining patient.
[2019-11-17 02:19] VITALS: BP 119/72
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
--- NOTE | 2019-11-17 02:25 | NUR ---
COVID SWAB COLLECTED AND SENT TO LAB.
[2019-11-17 02:32] VITALS: BP 119/72
== END 2019-11-17 02:32 | disposition home or self-care (01) ==
LOC: MED 02:02
DX: M54.6 Pain in thoracic spine (principal); Z20.828 Contact with and (suspected) exposure to other viral communicable diseases; H92.01 Otalgia, right ear
CPT/HCPCS: 99283; U0003

== ENCOUNTER 2019-11-24 20:32 | Emergency (ER) | payer OTHER ==
[~2019-11-24] VITALS: Ht 170.2 cm; Wt 56.7 kg
[2019-11-24 20:39] VITALS: BP 113/88
--- NOTE | 2019-11-24 20:41 | NUR ---
AMBULATED TO BED 7 WITH STEADY GAIT.
[2019-11-24] MEDS ORDERED: KETOROLAC 15 MG/ML VIAL IVP ONE (21:00)
--- NOTE | 2019-11-24 21:00 | NUR ---
EKG PERFORMED AT BEDSIDE
[2019-11-24] MEDS ORDERED: KETOROLAC 15 MG/ML VIAL IM ONE (21:20)
--- NOTE | 2019-11-24 21:34 | NUR ---
PT STATES SHE STARTED HAVING BODY ACHES AND A TIGHTNESS IN HER CHEST 1 WEEK AGO. WAS SEEN YESTERDAY AT URGENT CARE AND GIVE AN INHALER AND Z PACK. STATES SHE TOOK HER FIRST DOSE BUT DOESN'T FEEL ANY BETTER. PT DENIES SOB, NO COUGH, NO WHEEZES, LUNG SOUNDS CLEAR. VS WNL. AFEBRILE. BED IN LOWEST POSITION AND SIDERAIL UP X 1. NKA NO HX
[2019-11-24 22:01] VITALS: BP 113/88
== END 2019-11-24 22:01 | disposition home or self-care (01) ==
LOC: MED 20:32
DX: R06.02 Shortness of breath (principal); J45.909 Unspecified asthma, uncomplicated; Z79.899 Other long term (current) drug therapy; Z98.890 Other specified postprocedural states
CPT/HCPCS: 71045; 93005; 96372; 99283; J1885; Q0092

== ENCOUNTER 2023-01-07 21:00 | Emergency (ER) | payer OTHER ==
[~2023-01-07] VITALS: Ht 162.6 cm; Wt 59.4 kg
[2023-01-07 21:20] VITALS: BP 136/90; PULSE 75; RESP 17; TEMP 97.8; O2SAT 98
[2023-01-07 22:05] LABS: APPEARANCE,URINE CLEAR (CLEAR); BILIRUBIN,URINE NEGATIVE (NEGATIVE); BLOOD, URINE TRACE-I (NEGATIVE); COLOR,URINE YELLOW (YELLOW); LEUKOCYTE ESTERASE ,URINE NEGATIVE (NEGATIVE); NITRITE, URINE NEGATIVE (NEGATIVE); PROTEIN,URINE NEGATIVE (NEGATIVE); UGLUCOSE TRACE (NEGATIVE); UROBILINOGEN,URINE 0.2 EU/dL (0.2 - 1)
[2023-01-07 22:19] LABS: WBC,URINE 0-5 /HPF (0-5)
[2023-01-07 22:20] LABS: BACTERIA,URINE >30 (MANY) /HPF (None Seen); MUCUS,URINE 1+ /LPF (None Seen); SQUAMOUS EPITHELIAL CELL,UR 4-10 (MOD) /LPF (0-3 (FEW))
[2023-01-07] MEDS ORDERED: CEPHALEXIN SUSP. 250 MG/5 ML PO ONE (22:55)
[2023-01-07] MEDS ORDERED: DOXYCYCLINE 100 MG CAP PO ONE (23:15)
[2023-01-07] MEDS ORDERED: cefTRIAXone 250 MG in LIDOCAINE MPF 1% 0.9 ML IM ONE (23:15)
[2023-01-07] MEDS ORDERED: LIDOCAINE MPF 1% 5 ML ONE (23:19)
[2023-01-07] MEDS ORDERED: cefTRIAXone 250 MG VIAL ONE (23:19)
[2023-01-07] MEDS ORDERED: DOXY-690 PO (23:20)
[2023-01-07] MEDS ORDERED: metroNIDAZOLE 500 MG TAB PO ONE (23:20)
[2023-01-07 23:42] VITALS: BP 136/90; PULSE 75; RESP 17; TEMP 97.8; O2SAT 98
== END 2023-01-07 23:42 | disposition home or self-care (01) ==
LOC: MED 21:00
DX: N39.0 Urinary tract infection, site not specified (principal); N76.0 Acute vaginitis; Z79.899 Other long term (current) drug therapy
CPT/HCPCS: 81001; 81025; 87086; 96372; 99283; J0696; J2001